=== PATIENT | female | born 1950 | race Caucasian/White ===

== ENCOUNTER 2019-03-11 19:33 | Inpatient (IN) ==
--- NOTE | 2019-03-11 20:08 | PROVIDER DOCUMENTATION ---
HPI-General Adult - General Chief Complaint: Altered Mental Status Stated Complaint: AMS Time Seen by Provider: 03/11/19 19:54 Source: patient Allergies/Adverse Reactions: Patient Allergies Allergy/AdvReac Type Severity Reaction Status Date / Time cephalexin monohydrate * Allergy HIVES Verified 03/11/19 19:45 [From Keflex] Home Medications: Home Medication List Medication Instructions Recorded Confirmed Last Taken Type Amlodipine/Atorvastatin 5 mg PO DAILY 12/02/13 12/27/16 12/29/16 History [Amlodipine-Atorvast 5-10 mg] Atorvastatin Calcium [Lipitor] 20 mg PO DAILY 12/02/13 03/11/19 12/29/16 History Levothyroxine [Synthroid] 125 mcg PO DAILY 12/02/13 03/11/19 12/29/16 History Lisinopril 20 mg PO DAILY 12/02/13 12/27/16 12/29/16 History Venlafaxine [Effexor] 75 mg PO BID 12/02/13 03/11/19 12/29/16 History Aspirin 81 mg PO DAILY 12/27/16 12/31/16 1 Week Ago History ~12/24/16 Methocarbamol [Robaxin] 500 mg PO PRN PRN 12/27/16 12/31/16 3 Days Ago History ~12/28/16 Omeprazole 40 mg PO DAILY #30 capsule. 12/31/16 Unknown Rx Allopurinol 100 mg PO DAILY 03/11/19 03/11/19 Unknown History Cyanocobalamin (Vitamin B-12) 1,000 mcg PO DAILY 03/11/19 03/11/19 Unknown History [Vitamin B12] Ergocalciferol (Vitamin D2) 50,000 unit PO Q7D 03/11/19 03/11/19 Unknown History [Vitamin D] Lisinopril/Hydrochlorothiazide 20 mg PO DAILY 03/11/19 03/11/19 Unknown History [Lisinopril-Hctz 20-12.5 mg Tab] - History of Present Illness -Gen Adult Nature of Presenting Problems: 68 yof presents with complaints of taking 75mg effexor x 3 last night and again this morning to "catch up" because she stopped taking it because "it wasnt doing anything anymore". On triage her sats noted to be 87% on room air, she was placed on 2l o2 and sats increase to 92%. she reports he breathing has been "tighter this week". she does smoke one PPD and sometimes more. She is SOB which she reports is her baseline. She has cough that is productive of clear sputum per her report. family reports she is more confused and has been hallucinating. She denies SI/HI Location of Pain/Injury: reports: none Pain Radiation: reports: no radiation Quality of Pain: reports: none Severity: reports: moderate Onset/Duration: reports: unsure Timing: reports: still present Context/Activities at Onset: reports: other (took 3 x effexor dose) Modifying Factors: improves with: nothing Associated Symptoms: reports: cough, shortness of breath Similar Symptoms Previously?: No Recently seen or treated by another doctor?: No Review of Systems - Adult - REVIEW OF SYSTEMS - ADULT Constitutional: reports: no symptoms reported. denies: see HPI, chills, fever, fatique, night sweats, weight gain, weight loss, other Eyes: reports: no symptoms reported. denies: see HPI, discharge, dry eyes, decreased vision, blurred vision, double vision, eye pain, redness, other Ears, Nose, Mouth & Throat: reports: no symptoms reported. denies: see HPI, ear discharge, ear pain, hearing loss, tinnitus, epistaxis, sinus problem, nose pain, loose teeth, mouth/dental pain, mouth swelling, hoarseness, throat pain, throat swelling, other Cardiovascular: reports: no symptoms reported. denies: see HPI, chest pain, edema, heart murmur, irregular heart rate, orthopnea, palpitations, poor circulation, PND, syncope, other Respiratory: reports: see HPI, cough, excessive sputum production, shortness of breath, wheezing. denies: no symptoms reported, chronic cough, dyspnea on exertion, hemoptysis, pleurisy, other Gastrointestinal: reports: no symptoms reported. denies: see HPI, abdominal pain, hematemesis, constipation, diarrhea, difficulty swallowing, frequent heartburn, nausea, poor appetite, rectal bleeding, vomiting, other Genitourinary: reports: no symptoms reported. denies: see HPI, dysuria, disch arge, frequency, flank pain, frequent UTI's, hematuria, hesitency, incontinence, urinary retention, urgency, other Musculoskeletal: reports: no symptoms reported. denies: see HPI, bone pain, back pain, frequent leg cramps, joint pain, joint swelling, muscle aches, muscle weakness, neck pain, other Integumentary: reports: no symptoms reported. denies: see HPI, hives, hair loss, itching, mole changes, nail changes, rash, skin sores/ulcer, skin th ickening, other Neurological: reports: no symptoms reported. denies: see HPI, ataxia, dizziness/vertigo, headache/migraines, loss of balance, numbness, paresthesia, seizure, slurred speech, syncope, tremors, other Psychiatric: reports: no symptoms reported. denies: see HPI, anxiety, anti- depressant use, alcohol/drug dependence, depression, emotional problems, insomnia, panic attacks, suicidal thoughts, other Endocrine: reports: no symptoms reported. denies: see HPI, change in skin pigment, excessive sweating, goiter, cold intolerance, heat intolerance, increased hunger, increased thirst, polyuria, other Hematologic/Lymphatic: reports: no symptoms reported. denies: see HPI, blood clots, easy bruising, low blood count, lymphedema, prolonged bleeding, swollen lymph nodes, transfusions, other Allergic/Immunologic: reports: no symptoms reported. denies: see HPI, allergic reactions, allergic rhinitis, asthma, eczema, food allergy, frequent infections, hay fever, hives, positive PPD, urticaria, other Past History - Adult - PAST MEDICAL HISTORY-ADULT Review of Records: reports: Nursing Assessment Review, Social history reviewed & non-contributory. Physical Exam-General - PHYSICAL EXAM-ADULT Initial Vital Signs Reviewed: Yes - CONSTITUTIONAL General Appearance: alert, no apparent distress - EYES Eyes: PERRL/EOMI, pink conjunctivae - HEAD, EARS, NOSE, MOUTH & THROAT HENMT: normocephalic/atraumatic, moist mucous membranes, normal ENT inspection - NECK Neck: non-tender, full range of motion, supple - RESPIRATORY Respiratory: chest non-tender, no pleuratic chest pain, no respiratory distress, no accessory muscle use, wheezing - CARDIOVASCULAR Cardiovascular: normal peripheral pulses, regular rate, rhythm, no edema, no gallop, no JVD, no murmur - GASTROINTESTINAL (ABDOMEN) Abdominal Exam: normal bowel sounds, non tender, soft - LYMPHATIC Lymphatic: no adenopathy - MUSCULOSKELETAL Back Exam: normal inspection, no CVA tenderness, no vertebral tenderness Extremity: normal range of motion, non-tender, normal gait, normal inspection Peripheral Pulses: radial (R): 2+, radial (L): 2+ - SKIN Integumentary: normal color, normal turgor, warm/dry - NEUROLOGIC Neurologic: grossly normal - PSYCHIATRIC Psych/Mental Status: normal mood/affect, oriented x 3 Progress - PLAN OF CARE/RESULTS Progress/Plan/Lab Results: Vital Signs - 8 hr 03/11/19 19:38 Temperature 98.7 F Pulse Rate 68 Respiratory Rate 18 Blood Pressure 159/83 O2 Sat by Pulse Oximetry 87 L Orders Category Date Time Status Finger Stick Blood Sugar (ED) DIRECTED Care 03/11/19 19:56 Active cxr [CHEST-2 VIEWS] [RAD] Stat Exams 03/11/19 19:56 Ordered ABG [RESP] Routine Lab 03/11/19 19:56 Ordered AMMONIA [CHEM] Stat Lab 03/11/19 19:56 Uncollected BNP [PRO B-NATRIURETIC PEPTIDE] Stat Lab 03/11/19 20:02 Uncollected CBC WITH ELECTRONIC DIFF [HEME] Stat Lab 03/11/19 19:56 Uncollected COMPREHENSIVE METABOLIC PANEL [CHEM] Stat Lab 03/11/19 19:56 Uncollected TROPONIN T Stat Lab 03/11/19 20:02 Ordered UA NIMS W/REFLEX CULT PL [URINALYSIS] Stat Lab 03/11/19 19:58 Uncollected URINE DRUG SCREEN PL Stat Lab 03/11/19 19:58 Uncollected EKG [EKG] Stat Ther 03/11/19 19:59 Ordered Result Diagrams: 03/11/19 20:02 03/11/19 20:02 - XRAY 1 XRAY Study: Chest Impression: See EMR Report (EXAM: CHEST-2 VIEWS INDICATION: hypoxia TECHNIQUE: 2 views COMPARISON: 10/02/2014 FINDINGS: There is a focal opacity in the left midlung zone that appears somewhat linear and probably represents atelectasis. The lungs appear grossly clear, otherwise. There is no discrete pleural fluid collection or pneumothorax. The cardiomediastinal silhouette and central vasculature are grossly unremarkable. IMPRESSION: Focal opacity in the left midlung zone that appears linear and probably represents atelectasis. No definite acute pathology, otherwise. Electronically signed by Fadi Murphy 03/11/2019 8:57 PM 03/11/192056 Interpreting Physician: Fadi Murphy MD Dictated Date/Time: 03/11/192054 cc: Morena Canada; Chika Hendrickson) - CT/MRI 2 CT Study: Head Impression: See EMR Report (EXAM: CT HEAD W/O CONTRAST INDICATION: AMS TECHNIQUE: This exam was performed using automated exposure control, adjustment of mA or kV according to patient size, and/or use of iterative reconstruction technique. COMPARISON: None. FINDINGS: There is patchy low attenuation in the periventricular and subcortical white matter suggesting at least moderate microangiopathy. There is a low attenuating focus at the inferior aspect of the left basal ganglion indicating a Virchow-Nick space or a tiny chronic lacunar infarct. There is no definite acute infarct given the limited sensitivity of CT versus MRI. There is no discrete intracranial mass, mass effect, or intracranial hemorrhage. The surrounding soft tissues and bony structures are essentially unremarkable. IMPRESSION: Chronic appearing changes as described. No definite acute intracranial pathology by CT. Electronically signed by Fadi Murphy 03/11/2019 8:59 PM 03/11/192058 Interpreting Physician: Fadi Murphy MD Dictated Date/Time: 03/11/192057 cc: Morena Canada; Chika Hendrickson) - CONSULTS/PCP/HOSPITALIST Notification #1 *Consult/PCP/Hospitalist*: Dr. Starks Time Discussed: 21:28 Consult Disposition: Admit Departure - Departure Date of Disposition Decision: 03/11/19 Time of Disposition Decision: 21:27 DIAGNOSIS: Hypoxemia, Shortness of breath, UTI (urinary tract infection) Disposition: ADMITTED INPATIENT 09 Certified Medical Emergency: Emergent Condition: Fair Referrals and Follow-Ups: Chika Hendrickson CRNP [Primary Care Provider] - - Critical Care Note This patient required my direct & personal management of CC.: No Attestation - Physician/ SHEFALI Attestation Patient care was provided by Advanced Practice Provider:: Yes Advanced Practice Provider:: Morena Canada Advanced Practice Provider documentation review:: The Mid-level provider documentation, treatment plan and medical decision making was reviewed by the physician who agrees with all treatment and medical decision making by the MLP. The physician spent face to face time with patient:: No Advanced Practice Provider documentation review:: Supervising physician onsite and consulted in the evaluation and care of this patient. The physician did not have a face to face encounter with the patient.
[2019-03-11] MEDS ORDERED: DUONEB (A & A) INH ONE (20:09)
[2019-03-11 20:27] LABS: BASO# 0.02 X1000 (0.0-0.2); BASO% 0.2 % (0.0-0.8); EOS# 0.18 X1000 (0.0-0.7); EOS% 1.9 % (0.0-10.0); IMM GRAN# 0.04 X1000 (0.0-0.04); IMM GRAN% 0.4 % (0.0-0.5); LYMPH# 1.43 X1000 (1.2-3.4); LYMPH% 15.5 % (20.5-51.1); MCV 106.2 FL (81-99); MONO# 1.14 X1000 (0.11-0.59); MONO% 12.3 % (1.7-9.3); MPV 8.6 FL (7.4-10.4); NEUT# 6.43 X1000 (1.4-6.5); NEUT% 69.7 % (42.2-75.2); PLT 192 X1000 (130-400); RBC 4.71 XMIL (4.2-5.4); RDW 17.3 % (11.5-14.5); WBC 9.24 X1000 (4.8-10.8)
[2019-03-11 20:36] LABS: BILIRUBIN URINE NEGATIVE (NEGATIVE); BLOOD URINE TRACE (NEGATIVE); CLARITY CLEAR (CLEAR); COLOR YELLOW; GLUCOSE URINE NEGATIVE (NEGATIVE); KETONE URINE TRACE mg/dL (NEGATIVE); LEUKOCYTES URINE 1+ (NEGATIVE); NITRITE URINE NEGATIVE (NEGATIVE); PROTEIN URINE TRACE mg/dL (NEGATIVE); SP GRAVITY URINE 1.005; UROBILINOGEN URINE 4 mg/dL
[2019-03-11 20:38] LABS: UR AMPHETAMINES QUAL NONE DETECTED (NONE DETECT); UR BARBITUATES QUAL NONE DETECTED (NONE DETECT); UR BENZODIAZEPIN QUAL NONE DETECTED (NONE DETECT); UR CANNABINOIDS QUAL NONE DETECTED (NONE DETECT); UR COCAINE QUAL NONE DETECTED (NONE DETECT); UR METHADONE QUAL NONE DETECTED (NONE DETECT); UR METHAMPHETAMINE QUAL NONE DETECTED (NONE DETECT); UR OPIATES QUAL NONE DETECTED (NONE DETECT); UR OXYCODONE QUAL NONE DETECTED (NONE DETECT); UR PCP QUAL NONE DETECTED (NONE DETECT); UR PROPOXYPHENE QUAL NONE DETECTED (NONE DETECT); UR TCA QUAL NONE DETECTED (NONE DETECT)
[2019-03-11 20:41] LABS: URINE BACTERIA 1+ /HFP; URINE EPITHELIAL CELLS >10 /HPF (<10); URINE RBC <10 /HPF (<10); URINE SOURCE CLEAN CATCH
[2019-03-11 20:48] LABS: ALBUMIN 4.1 g/dL (3.5-5.0); CALCIUM 9.3 mg/dL (8.8-10.2); CREATININE 1.3 mg/dL (0.5-0.9); POTASSIUM 4.3 mmol/L (3.5-5.1); TOTAL BILIRUBIN 0.7 mg/dL (0.20-1.00); TOTAL PROTEIN 6.4 g/dL (6.3-8.3)
--- NOTE | 2019-03-11 20:59 | Diag Imaging Result Doc PS360 ---
EXAM: CHEST-2 VIEWS INDICATION: hypoxia TECHNIQUE: 2 views COMPARISON: 10/02/2014 FINDINGS: There is a focal opacity in the left midlung zone that appears somewhat linear and probably represents atelectasis. The lungs appear grossly clear, otherwise. There is no discrete pleural fluid collection or pneumothorax. The cardiomediastinal silhouette and central vasculature are grossly unremarkable. IMPRESSION: Focal opacity in the left midlung zone that appears linear and probably represents atelectasis. No definite acute pathology, otherwise. Electronically signed by Fadi Murphy 03/11/2019 8:57 PM
--- NOTE | 2019-03-11 21:02 | Diag Imaging Result Doc PS360 ---
EXAM: CT HEAD W/O CONTRAST INDICATION: AMS TECHNIQUE: This exam was performed using automated exposure control, adjustment of mA or kV according to patient size, and/or use of iterative reconstruction technique. COMPARISON: None. FINDINGS: There is patchy low attenuation in the periventricular and subcortical white matter suggesting at least moderate microangiopathy. There is a low attenuating focus at the inferior aspect of the left basal ganglion indicating a Virchow-Nick space or a tiny chronic lacunar infarct. There is no definite acute infarct given the limited sensitivity of CT versus MRI. There is no discrete intracranial mass, mass effect, or intracranial hemorrhage. The surrounding soft tissues and bony structures are essentially unremarkable. IMPRESSION: Chronic appearing changes as described. No definite acute intracranial pathology by CT. Electronically signed by Fadi Murphy 03/11/2019 8:59 PM
[2019-03-11] MEDS ORDERED: LEVAQUIN 500 MG/D5W 500 MG/100 ML IVPB IV ONE (21:07)
[2019-03-11 21:10] LABS: CK INDEX 2.1 (0.0-2.5); CK-MB 3.71 ng/mL (0.0-5.0)
[2019-03-11] MEDS ORDERED: ZOFRAN IV PRN (21:30)
[2019-03-11] MEDS ORDERED: MORPHINE IV PRN (21:30)
[2019-03-11] MEDS ORDERED: NICODERM PATCH TD ONE (21:32)
--- NOTE | 2019-03-11 21:45 | ED EKG INTERP ---
This chart was entered by Hope Reyes Scribe, acting as scribe for Jake Crum MD. EKG Interpretation - EKG Time of EKG reading by physician:: 20:16 EKG Read and Signed by:: Jake Crum EKG Interpretation (*Must complete 3 of following elements*): Abnormal (NSR, Incomplete right bundle branch block, Nonspecific ST abnormality, Abnormal ECG) Rate: 66 Rhythm: NSR [place]: normal QRS: RBB Attestation - Physician/ SHEFALI Attestation Patient care was provided by Advanced Practice Provider:: No The physician spent face to face time with patient:: Yes Advanced Practice Provider documentation review:: Supervising physician onsite and consulted in the evaluation and care of this patient. The physician did have a face to face encounter with the patient. This chart was documented by the indicated scribe, (Hope Reyes Scribe) and accurately reflects the services I performed and decisions made by me, Jake Crum MD, as attested by the provider's signature.
[2019-03-12 05:27] LABS: BLOOD TYPE ARTERIAL; HCO3-(ACT) 32.4 mmoll (20.0-26.0); O2(CT) 19.8 mL/dL (15.0-23.0); PO2(98.6) 63 mmHg (60-100); SAMPLE BLOOD; SAO2 93.5 % (95.0-100.0); THB 16.3 g/dL (11.5-17.4); pH(98.6) 7.39 (7.35-7.45)
[2019-03-12 05:29] LABS: O2HB 86.6 % (95.0-99.0)
[2019-03-12 05:31] LABS: ALLEN TEST YES; MODALITY CANNULA; PCO2(98.6) 63 mmHg (35-45)
--- NOTE | 2019-03-12 05:44 | EKG Report ---
Test Performed on : 03/11/2019 8:16:38 PM Test Reason : CP Blood Pressure : / mmHG Vent. Rate : 066 BPM Atrial Rate : 066 BPM P-R Int : 178 ms QRS Dur : 092 ms QT Int : 406 ms P-R-T Axes : 077 -15 -09 degrees QTc Int : 425 ms Normal sinus rhythm. Incomplete right bundle branch block Nonspecific ST abnormality Abnormal ECG When compared with ECG of 25-OCT-2009 00:07, Incomplete right bundle branch block is now present Unconfirmed Result
[2019-03-12] MEDS ORDERED: ZOFRAN IV PRN (07:32)
[2019-03-12] MEDS ORDERED: DUONEB (A & A) INH PRN (07:32)
[2019-03-12] MEDS ORDERED: TYLENOL PO PRN (07:32)
[2019-03-12] MEDS: ROCEPHIN 1 GM in NS 50 ML IV SCH (08:21)
[2019-03-12] MEDS: NS 1,000 ML IV SCH ×2 (08:21→22:32)
[2019-03-12] MEDS ORDERED: SYNTHROID PO SCH (09:00)
[2019-03-12] MEDS ORDERED: PRINZIDE 20/12.5MG PO SCH (09:00)
--- NOTE | 2019-03-12 11:31 | HISTORY AND PHYSICAL ---
CHIEF COMPLAINT: Altered mental status. HISTORY OF PRESENT ILLNESS: This is a 68-year-old female who presented to the emergency room with family members who stated that the patient has been more confused than normal, been hallucinating. The patient reported stopping Effexor and then restarting it, taking three 75 mg p.o. all the night of the and then three 75 mg pills on the morning of the to try to catch up. She stated she stopped the medication on her own. On arrival to the emergency room, she was noted to have a room air O2 saturation of 87%. It did increase to 92% on 2 L nasal cannula. She denied any syncope or dizziness, any chest pain or palpitations. She was noted to have a cough with bilateral expiratory wheezes. PAST MEDICAL HISTORY: 1. Chronic obstructive pulmonary disease. 2. Hypertension. 3. Hyperlipidemia. 4. Hypothyroid. 5. Obesity. 6. Arthritis. 7. Chronic kidney disease with a baseline creatinine of 1.3. PAST SURGICAL HISTORY: 1. Left hip replacement, then revision. 2. Cholecystectomy. 3. Back surgery with multiple epidural injections for pain. FAMILY HISTORY: Both parents from an myocardial infarction, the father at 66 and mother at 72. ALLERGIES: Keflex. HOME MEDICATIONS: A list will be obtained by the nursing staff and once verified will review and restart as appropriate. REVIEW OF SYSTEMS: Discussed with patient with pertinent positives stated in the HPI. She denied any syncope or dizziness, any chest pain, palpitations, any fevers or chills, any nausea, vomiting, diarrhea, constipation, black or bloody vomitus or stools, hematuria, dysuria, frequency, urgency. VITAL SIGNS: Blood pressure is 158/61, heart rate of 73, respirations 18, temperature 98.3 degrees oral with O2 saturations 94 to 96 percent on 2 L nasal cannula. PHYSICAL EXAM: EYES: Pupils are equal, round, react to light. EOMs are intact. Sclerae are anicteric. HENT: Head is normocephalic, atraumatic. Mucous membranes are moist. NECK: Supple with trachea midline. CARDIOVASCULAR: Regular rate and rhythm. S1 and S2 appreciated. No murmurs. She has no lower extremity edema. Calves are nontender bilateral with peripheral pulses palpable x4 extremities. PULMONARY: Breath sounds with bilateral expiratory wheezes and some crackles. No increased work of breathing noted. Chest rises and falls symmetric with respiration. GASTROINTESTINAL: Abdomen is soft, nontender, nondistended with bowel sounds in all 4 quadrants. GENITOURINARY: No CVA or suprapubic tenderness. NEUROLOGIC: She is drowsy. She wakes up to verbal stimulation. She is oriented x3. SKIN: Warm and dry. ASSESSMENT AND PLAN: 1. Medication overdose. The patient denies any homicidal or suicidal ideation. She stated that she was just trying to catch up on the Effexor as she had stopped it on her on previously. We will continue to monitor. 2. Acute hypoxemic hypercarbic respiratory failure. We will continue with supplemental oxygen and monitor saturations. 3. Acute on chronic obstructive pulmonary disease exacerbation. Continue supplemental oxygen. We will give incentive spirometer q.4 hours, DuoNebs q.4 hours with q.2 hours p.r.n. Will give will give low-dose steroids to taper. 4. Hypothyroid. We will continue her home medication. 5. Chronic kidney disease. Baseline creatinine is 1.3. We will check labs daily, renal dose medications as appropriate. 6. Hypertension. We will continue her home medications once verified. Monitor vital signs and treat appropriately. 7. Obesity. 8. Hyperlipidemia. We will continue home medications. Further treatments pending hospital course. Plan was discussed with Dr. Fernandez. Dictated by DAVID Yeager for Scott Fernandez MD cc: DAVID Yeager MD
[2019-03-12] MEDS: DUONEB (A & A) INH SCH ×4 (11:32→23:37)
[2019-03-12] MEDS: SYNTHROID PO SCH ×2 (11:45)
[2019-03-12] MEDS: SOLU-MEDROL IV SCH ×2 (11:45→19:31)
[2019-03-12] MEDS: PRINIVIL PO SCH (11:45)
[2019-03-12] MEDS: HYDROCHLOROTHIAZIDE PO SCH (11:46)
[2019-03-12] MEDS: ZYLOPRIM PO SCH (11:46)
--- NOTE | 2019-03-12 12:42 | HISTORY AND PHYSICAL ---
ADDENDUM: Patient seen and examined by myself. Full note dictated and discussed with nurse practitioner. Patient presented to the hospital with her son noting that she has been confused off and on for the past several days, worsened yesterday. She did take several of her Effexor, I believe 6 pills in 2 days, because she has been off of it for a few days and she was trying to catch up. Certainly concerned that she may have a urinary infection causing metabolic encephalopathy. We are going to place her in the hospital on IV fluids. Place her on antibiotics. She appears to be having a COPD exacerbation as well. I do not want to start on steroids yet because this certainly could worsen her confusion. I expect that she also has sleep apnea, although she has not been treated. We will continue to follow. Further orders as needed. cc: Scott Fernandez MD
[2019-03-12] MEDS: LIPITOR PO SCH (20:44)
[2019-03-13] MEDS: SOLU-MEDROL IV SCH ×3 (03:46→19:11)
[2019-03-13 05:56] LABS: HEMATOCRIT 50.5 % (37.0-47.0); HEMOGLOBIN 15.4 g/dL (12.0-16.0); MCH 33.1 PG (27-31); MCHC 30.5 g/dL (33-37); MCV 108.6 FL (81-99); MPV 8.4 FL (7.4-10.4); RBC 4.65 XMIL (4.2-5.4); RDW 17.1 % (11.5-14.5); WBC 8.38 X1000 (4.8-10.8)
[2019-03-13] MEDS: SYNTHROID PO SCH ×2 (06:08)
--- NOTE | 2019-03-13 06:53 | Diag Imaging Result Doc PS360 ---
EXAM: CHEST-PORTABLE HISTORY: dyspnea TECHNIQUE: Chest single view COMPARISON: 03/11/2019 FINDINGS: Exam is taken in an extreme lordotic projection. Poor inspiratory effort. Heart is prominent. Questionable atelectasis or infiltrates in the left base. Follow-up PA and lateral recommended. Electronically signed by Nam Menchaca 03/13/2019 6:51 AM
[2019-03-13 06:56] LABS: AGAP 10; ALBUMIN 3.7 g/dL (3.5-5.0); ALKALINE PHOSPHATASE 80 U/L (32-104); BUN 21 mg/dL (8-22); CALCIUM 9.2 mg/dL (8.8-10.2); CHLORIDE 96 mmol/L (98-107); COSMO 283; CREATININE 1.1 mg/dL (0.5-0.9); ESTIMATED GFR 50; GLUCOSE 169 mg/dL (70-104); GOT 13 U/L (10-30); GPT < 5 U/L (10-36); MAGNESIUM 1.9 mg/dL (1.5-2.7); POTASSIUM 4.6 mmol/L (3.5-5.1); SODIUM 138 mmol/L (136-145); TCO2 32 mmol/L (25-35); TOTAL PROTEIN 6.7 g/dL (6.3-8.3)
[2019-03-13] MEDS: DUONEB (A & A) INH SCH ×5 (07:03→23:36)
[2019-03-13] MEDS: ZYLOPRIM PO SCH (08:08)
[2019-03-13] MEDS: HYDROCHLOROTHIAZIDE PO SCH (08:08)
[2019-03-13] MEDS: ROCEPHIN 1 GM in NS 50 ML IV SCH (08:08)
[2019-03-13] MEDS: PRINIVIL PO SCH (08:08)
[2019-03-13] MEDS ORDERED: CARDIZEM ONE (09:04)
--- NOTE | 2019-03-13 10:07 | PROGRESS NOTE ---
DATE: 03/13/2019 SUBJECTIVE: Patient feels better this morning and denies having any new complaints. She still has some wheezing. OBJECTIVE: Vital Signs: Temperature 98.2 degrees, pulse 76 per minute, respiratory rate is 16 per minute, blood pressure 131/72, pulse ox 89 percent on 4 L of oxygen via nasal cannula. General: Patient is alert and oriented x3. She does not appear to be in any acute distress. Cardiovascular System: First and second heart sounds are audible without any murmurs or gallops. Respiratory System: Bilateral lung air entry is moderately decreased with a few wheezes present on expiration. Gastrointestinal System: Patient is morbidly obese. Abdomen is soft and nontender. Normal bowel sounds are present. Musculoskeletal System: No deformities are present. DIAGNOSTIC DATA: CBC is nondiagnostic and comprehensive metabolic panel showed glucose levels of 169. Rest of the CMP was nondiagnostic. Arterial blood gases done on 03/11/2019 showed pH of 7.39, pCO2 63, and PO2 63. This ABG was drawn on 28% of oxygen. IMPRESSION: 1. Effexor overdose. 2. Acute hypoxemic respiratory failure secondary to acute chronic obstructive pulmonary disease exacerbation. 3. Hypertension. 4. Hypothyroidism. PLAN: The patient took extra Effexor, overdosed, but denies having any suicidal ideation. She just wanted to feel better and now understands that she does not have to do that in the future. She does have wheezing bilaterally, and therefore we are going to continue with IV Solu-Medrol along with bronchodilators. Her blood pressure has been stable and she will continue with levothyroxine for her hypothyroidism. I think she might be able to be discharged home within the next 1 to 2 days. cc: Shagufta Mcdonough MD
[2019-03-13] MEDS: NS 1,000 ML IV SCH (16:33)
[2019-03-13] MEDS: LIPITOR PO SCH (20:05)
[2019-03-14] MEDS: SOLU-MEDROL IV SCH ×3 (03:13→20:20)
[2019-03-14 06:00] LABS: BE 10.6 mmoll (-3.0-3.0); BLOOD TYPE ARTERIAL; HCO3-(ACT) 32.8 mmoll (20.0-26.0); METHB 1.4 % (0.0-1.5); O2(CT) 19.5 mL/dL (15.0-23.0); PO2(98.6) 52 mmHg (60-100); SAMPLE BLOOD; SAO2 90.6 % (95.0-100.0); pH(98.6) 7.33 (7.35-7.45)
[2019-03-14 06:02] LABS: ALLEN TEST NO; MODALITY CANNULA; O2HB 86.8 % (95.0-99.0); PCO2(98.6) 77 mmHg (35-45)
[2019-03-14] MEDS: SYNTHROID PO SCH ×2 (06:11)
[2019-03-14] MEDS: DUONEB (A & A) INH SCH ×5 (07:46→23:27)
--- NOTE | 2019-03-14 08:16 | Diag Imaging Result Doc PS360 ---
EXAM: CHEST-PORTABLE - 03/14/2019 HISTORY: Respiratory Failure TECHNIQUE: Portable chest COMPARISON: 03/13/2019 FINDINGS: The projection is somewhat lordotic similar to prior. There is limitation of detail of the left base. The remainder the lungs appear essentially clear. There is no pneumothorax identified. IMPRESSION: Limitation of detail at left base. Possibility of infiltrate or pleural fluid at the left base cannot be excluded. Electronically signed by Darrius Mattson 03/14/2019 8:13 AM
[2019-03-14 08:50] LABS: BASO# 0.01 X1000 (0.0-0.2); BASO% 0.1 % (0.0-0.8); EOS# 0.01 X1000 (0.0-0.7); EOS% 0.1 % (0.0-10.0); HEMATOCRIT 51.7 % (37.0-47.0); HEMOGLOBIN 15.9 g/dL (12.0-16.0); IMM GRAN# 0.06 X1000 (0.0-0.04); IMM GRAN% 0.5 % (0.0-0.5); LYMPH% 10.5 % (20.5-51.1); MCH 33.5 PG (27-31); MCHC 30.8 g/dL (33-37); MCV 108.8 FL (81-99); MONO# 1.49 X1000 (0.11-0.59); MONO% 12.1 % (1.7-9.3); MPV 8.7 FL (7.4-10.4); NEUT# 9.49 X1000 (1.4-6.5); NEUT% 76.7 % (42.2-75.2); PLT 188 X1000 (130-400); RBC 4.75 XMIL (4.2-5.4); RDW 17.3 % (11.5-14.5); WBC 12.36 X1000 (4.8-10.8)
[2019-03-14] MEDS ORDERED: VITAMIN D PO SCH (09:00)
[2019-03-14] MEDS: HYDROCHLOROTHIAZIDE PO SCH (09:30)
[2019-03-14] MEDS: ZYLOPRIM PO SCH (09:30)
[2019-03-14] MEDS: PRINIVIL PO SCH (09:30)
--- NOTE | 2019-03-14 10:00 | PROGRESS NOTE ---
DATE: 03/14/2019 SUBJECTIVE: Patient denies having any acute complaints this morning and feels well. OBJECTIVE: Vital Signs: Temperature 98.0 degrees, pulse 68 per minute, respiratory rate 14 per minute, blood pressure 162/75, pulse ox 92 percent on 4 L of oxygen via nasal cannula. General: Patient is alert and oriented x3. She does not appear to be in any acute distress. Cardiovascular System: First and second heart sounds are audible without murmurs or gallops. Respiratory System: Bilateral lung air entry is moderately decreased but there are no rales or rhonchi present on auscultation. Gastrointestinal System: Patient is morbidly obese. Abdomen is soft and nontender. Normal bowel sounds are present. Musculoskeletal System: No deformities are present. DIAGNOSTIC DATA: CBC shows WBC count of 12.36, hemoglobin 15.9, hematocrit 51.7, and platelet count 188,000. Comprehensive metabolic panel is ordered but pending at the time of this dictation. Arterial blood gases done this morning showed pH of 7.33, pCO2 77, and PO2 52 on 36% of oxygen. Oxyhemoglobin was noted to be 86.8%. Chest x-ray obtained this morning showed limitation of detail at left base. The possibility of infiltrate or pleural fluid at the base cannot be excluded. IMPRESSION: 1. Acute hypoxemic respiratory failure with acute chronic obstructive pulmonary disease exacerbation. 2. Hypertension. 3. Hypothyroidism. PLAN: The patient has been getting IV methylprednisolone along with ceftriaxone. I will continue with methylprednisolone but discontinue ceftriaxone, and switch her to Zosyn IV to cover the anaerobes since she is at risk of aspiration. She was originally admitted to the hospital because of Effexor overdose. I am going to obtain CT angiogram of the pulmonary arteries to further evaluate her hypoxemia since she has a large body habitus and is at risk of having venous thromboembolism. We are going to continue giving her bronchodilators along with routine medications for blood pressure control, dyslipidemia and levothyroxine. Further recommendations will be given as per outcome of these measures. cc: Shagufta Mcdonough MD [facility]
[2019-03-14 10:01] LABS: AGAP 9; ALBUMIN 3.8 g/dL (3.5-5.0); ALKALINE PHOSPHATASE 74 U/L (32-104); BUN 27 mg/dL (8-22); CALCIUM 9.6 mg/dL (8.8-10.2); CHLORIDE 95 mmol/L (98-107); COSMO 284; CREATININE 1.2 mg/dL (0.5-0.9); ESTIMATED GFR 45; GLUCOSE 88 mg/dL (70-104); GOT 15 U/L (10-30); GPT < 5 U/L (10-36); POTASSIUM 4.4 mmol/L (3.5-5.1); SODIUM 140 mmol/L (136-145); TCO2 36 mmol/L (25-35); TOTAL PROTEIN 6.7 g/dL (6.3-8.3)
[2019-03-14] MEDS: NS 1,000 ML IV SCH (10:31)
[2019-03-14] MEDS: ZOSYN 3.375 GM in NS 50 ML IV SCH ×4 (10:31→21:00)
[2019-03-14 11:15] LABS: ANISOCYTOSIS 1+; LYMPHS 9 % (21-51); MONO 12 % (1-9); SEGS 79 % (42-75)
[2019-03-14] MEDS ORDERED: LOVENOX SUBQ SCH (16:00)
--- NOTE | 2019-03-14 17:40 | Diag Imaging Result Doc PS360 ---
EXAM: CT ANGIOGRAM PULMONARY ARTERIES - 03/14/2019 HISTORY: Hypoxemia; Dyspnia TECHNIQUE: CT angiogram pulmonary arteries with intravenous contrast. Axial, 2-D coronal MIP, and 3-D MIP images are obtained. COMPARISON: None. FINDINGS: There are artifacts from the patient's body habitus which limit detail. The pulmonary arteries of the left upper lobe are relatively small. There are possibly chronic emboli at the left lower lobe. There are no discrete acute pulmonary emboli identified. There is no indication of aortic dissection. There are some subsegmental atelectasis and/or scarring at the bilateral lower lobes and at the posterior left upper lobe. There is no pleural effusion or pneumothorax identified. IMPRESSION: No discrete evidence of acute pulmonary emboli. Subsegmental atelectasis and/or scarring at bilateral lower lobes and posterior left upper lobe. No discrete pneumonia. Electronically signed by Darrius Mattson 03/14/2019 5:37 PM
[2019-03-14] MEDS: ELIQUIS PO SCH (20:22)
[2019-03-14] MEDS: LIPITOR PO SCH (20:24)
[2019-03-15] MEDS: NS 1,000 ML IV SCH (00:40)
[2019-03-15] MEDS: SOLU-MEDROL IV SCH ×3 (04:15→19:45)
[2019-03-15] MEDS: ZOSYN 3.375 GM in NS 50 ML IV SCH ×4 (04:20→21:33)
[2019-03-15 05:48] LABS: BE 9.5 mmoll (-3.0-3.0); BLOOD TYPE ARTERIAL; HCO3-(ACT) 31.9 mmoll (20.0-26.0); METHB 1.3 % (0.0-1.5); O2(CT) 20.4 mL/dL (15.0-23.0); SAMPLE BLOOD; SAO2 88.8 % (95.0-100.0); THB 17.1 g/dL (11.5-17.4); pH(98.6) 7.33 (7.35-7.45)
[2019-03-15 05:51] LABS: PCO2(98.6) 75 mmHg (35-45)
[2019-03-15 05:53] LABS: ALLEN TEST NO; MODALITY CANNULA; O2HB 85.2 % (95.0-99.0); PO2(98.6) 49 mmHg (60-100)
[2019-03-15] MEDS: SYNTHROID PO SCH ×2 (06:00)
[2019-03-15 06:36] LABS: HEMATOCRIT 51.5 % (37.0-47.0); HEMOGLOBIN 16.1 g/dL (12.0-16.0); IMM GRAN# 0.08 X1000 (0.0-0.04); IMM GRAN% 0.8 % (0.0-0.5); LYMPH# 0.46 X1000 (1.2-3.4); LYMPH% 4.7 % (20.5-51.1); MCH 33.8 PG (27-31); MCHC 31.3 g/dL (33-37); MONO# 0.27 X1000 (0.11-0.59); MONO% 2.8 % (1.7-9.3); MPV 9.2 FL (7.4-10.4); NEUT# 8.94 X1000 (1.4-6.5); NEUT% 91.7 % (42.2-75.2); PLT 166 X1000 (130-400); RBC 4.77 XMIL (4.2-5.4); WBC 9.75 X1000 (4.8-10.8)
[2019-03-15 06:52] LABS: AGAP 11; ALBUMIN 3.8 g/dL (3.5-5.0); ALKALINE PHOSPHATASE 72 U/L (32-104); BUN 27 mg/dL (8-22); CALCIUM 9.5 mg/dL (8.8-10.2); CHLORIDE 95 mmol/L (98-107); COSMO 289; CREATININE 1.2 mg/dL (0.5-0.9); ESTIMATED GFR 45; GLUCOSE 142 mg/dL (70-104); GOT 11 U/L (10-30); GPT < 5 U/L (10-36); SODIUM 141 mmol/L (136-145); TCO2 35 mmol/L (25-35); TOTAL PROTEIN 6.6 g/dL (6.3-8.3)
[2019-03-15] MEDS: DUONEB (A & A) INH SCH ×4 (08:37→19:26)
[2019-03-15 09:19] LABS: ANISOCYTOSIS 1+; LYMPHS 7 % (21-51); MONO 3 % (1-9); SEGS 90 % (42-75)
[2019-03-15] MEDS: ZYLOPRIM PO SCH (10:10)
[2019-03-15] MEDS: PRINIVIL PO SCH (10:11)
[2019-03-15] MEDS: ELIQUIS PO SCH ×2 (10:11→21:33)
[2019-03-15] MEDS: HYDROCHLOROTHIAZIDE PO SCH (10:11)
--- NOTE | 2019-03-15 20:37 | PROGRESS NOTE ---
DATE: 03/15/2019 SUBJECTIVE: Patient notes that overall she is feeling okay, still weak and tired, really has not been able to get out of bed on her own. Still short of breath and wheezing. Denies any fevers. PHYSICAL EXAMINATION: Vital Signs: Temperature 98 degrees, pulse 79, respiratory rate 18, BP 157/57. General: Patient is obese female who is in mild respiratory distress, but actually improved from admission. HEENT: Normocephalic. Neck: Supple. Cardiovascular: Regular rate. No murmurs. Chest: Decreased breath sounds, but equal bilaterally. Better air movement. Positive wheezing, which also has improved. Abdomen: Soft, obese, nondistended. Extremities: Moves all extremities. Neurologic: No changes. ASSESSMENT: 1. Chronic obstructive pulmonary disease with exacerbation. 2. Obesity. 3. Hypertension. 4. Hypothyroidism. PLAN: We are going to saline lock, decrease her Solu-Medrol from 60 to 40 intravenously every 8 hours, continue to follow. Hopefully, she can discharge home over the next day or two if her symptoms continue to improve. cc: Scott Fernandez MD
[2019-03-15] MEDS: LIPITOR PO SCH (21:33)
[2019-03-16] MEDS: ZOSYN 3.375 GM in NS 50 ML IV SCH ×2 (03:42→10:43)
[2019-03-16] MEDS: SOLU-MEDROL IV SCH ×2 (03:42→12:16)
[2019-03-16] MEDS: DUONEB (A & A) INH SCH ×4 (03:52→15:10)
[2019-03-16] MEDS: SYNTHROID PO SCH ×2 (06:13)
[2019-03-16] MEDS: HYDROCHLOROTHIAZIDE PO SCH (09:44)
[2019-03-16] MEDS: ELIQUIS PO SCH (09:44)
[2019-03-16] MEDS: ZYLOPRIM PO SCH (09:45)
[2019-03-16] MEDS: PRINIVIL PO SCH (09:45)
[2019-03-16 13:05] LABS: BASO# 0.01 X1000 (0.0-0.2); BASO% 0.1 % (0.0-0.8); HEMATOCRIT 50.1 % (37.0-47.0); HEMOGLOBIN 16.3 g/dL (12.0-16.0); IMM GRAN# 0.05 X1000 (0.0-0.04); IMM GRAN% 0.4 % (0.0-0.5); LYMPH# 0.76 X1000 (1.2-3.4); LYMPH% 6.5 % (20.5-51.1); MCH 34.2 PG (27-31); MCHC 32.5 g/dL (33-37); MONO# 1.13 X1000 (0.11-0.59); MONO% 9.7 % (1.7-9.3); MPV 8.8 FL (7.4-10.4); NEUT# 9.74 X1000 (1.4-6.5); NEUT% 83.3 % (42.2-75.2); PLT 168 X1000 (130-400); RBC 4.77 XMIL (4.2-5.4); RDW 16.7 % (11.5-14.5); WBC 11.69 X1000 (4.8-10.8)
[2019-03-16 13:13] LABS: BE 13.7 mmoll (-3.0-3.0); BLOOD TYPE ARTERIAL; HCO3-(ACT) 35.2 mmoll (20.0-26.0); METHB 1.2 % (0.0-1.5); O2(CT) 20.3 mL/dL (15.0-23.0); O2HB 84.9 % (95.0-99.0); SAMPLE BLOOD; SAO2 88.3 % (95.0-100.0); THB 17.1 g/dL (11.5-17.4); pH(98.6) 7.48 (7.35-7.45)
[2019-03-16 13:16] LABS: CALCIUM 9.8 mg/dL (8.8-10.2); CREATININE 1.1 mg/dL (0.5-0.9); POTASSIUM 4.5 mmol/L (3.5-5.1)
[2019-03-16 13:36] LABS: ALLEN TEST YES; MODALITY CANNULA
[2019-03-16 13:37] LABS: PCO2(98.6) 54 mmHg (35-45)
[2019-03-16 13:38] LABS: PO2(98.6) 48 mmHg (60-100)
[2019-03-16 15:29] VITALS: BP 169/91
--- NOTE | 2019-03-16 22:01 | DISCHARGE SUMMARY ---
ADMISSION DATE: 03/11/2019 DISCHARGE DATE: 03/16/2019 CONTINUATION REPORT DISCHARGE DIET: Heart healthy diet. DISCHARGE ACTIVITY: As tolerated. DISCHARGE MEDICATIONS: 1. Allopurinol 100 mg p.o. daily. 2. Effexor 75 mg p.o. twice daily. 3. Lipitor 20 mg p.o. daily. 4. Lisinopril hydrochlorothiazide 20/12.5 mg p.o. tab daily. 5. Synthroid 125 mcg p.o. daily. 6. Vitamin B12 1000 mcg p.o. daily. 7. Vitamin D2 74983 units p.o. daily. 8. Levaquin 750 mg p.o. daily for 7 days. 9. Medrol Dosepak. PHYSICIAN FOLLOWUP: Chika Hendrickson in the next 2 weeks. DISCHARGE INSTRUCTIONS: If her condition changes, contact physician and/or return to the emergency department. Changes may include, but are not limited to shortness of breath, increased fatigue, excessive bleeding, unexplained weight loss or gain, unmanageable pain, signs or symptoms of infection. DISCHARGE DISPOSITION: Home. Dictated by DAVID Parkinson for Tobi Sweet MD cc: DAVID Parkinson MD
--- NOTE | 2019-03-16 22:01 | DISCHARGE SUMMARY ---
ADMISSION DATE: 03/11/2019 DISCHARGE DATE: 03/16/2019 ADMISSION DIAGNOSES: 1. Medication overdose with a denial of homicidal, suicidal, ADA ideation. Apparently, the patient was just trying to catch up on her Effexor. They had stopped it. 2. Acute hypoxemic hypercarbic respiratory failure. 3. Acute on chronic obstructive pulmonary disease exacerbation. 4. Hypothyroidism. 5. Chronic kidney disease stage 3. 6. Hypertension. 7. Obesity with a BMI of 44.7. 8. Hyperlipidemia. DISCHARGE DIAGNOSES: 1. Chronic obstructive pulmonary disease exacerbation. 2. Obesity with a BMI of 44.7. 3. Hypertension. 4. Hypothyroidism. CONSULTATIONS: Case management, social service. SURGERIES/PROCEDURES: None. HOSPITAL COURSE: On 03/11/2019, Ms. Kaila Miller, a 68-year-old female presented to the emergency department with family members who stated that the patient had been more confused than usual, and apparently had been hallucinating. The patient reported stopping Effexor and then restarting it, taking three 75 mg p.o. tablets all in the night of the and then 3 more 75 mg pills on the morning of the trying to catch up. Apparently, she tried to stop this medication on her own before trying to catch back up on it. On arrival to the emergency department, she was noted to have O2 saturation of 87%and 2 L of oxygen brought back up to 92%. She had no other complaints other than she did have a cough with some bilateral expiratory wheezes. She was treated for respiratory failure with oxygen, DuoNeb, incentive spirometer, low- dose steroids, and Zosyn. She was continued on her home medications for her hypothyroidism, hypertension and hyperlipidemia. Her kidney disease remains stable with a creatinine anywhere from 1.1 to 1.2. There was a chest x-ray on the questioned atelectasis or infiltrate in the left base and recommended another x-ray, but PA and lateral view. For the Effexor overdose she was just monitored closely. There were no other side effects other than the confusion that she had but that also improved. She had a pulmonary arteriogram on the . There was no acute pulmonary emboli. It did show possibly chronic emboli in the left lower lobe, but nothing acute and she is already on Eliquis 5 mg twice a day. At some point, she was on ceftriaxone, but she was discontinued on that and started on Zosyn and that was approximately on the 14 of March. Steroids were titrated down and she is stable enough for discharge home. DISCHARGE VITAL SIGNS: Temperature 97.8 degrees, heart rate 54, respiratory rate 20, blood pressure 167/80, O2 saturation 92% on 3 L nasal cannula. DISCHARGE LAB DATA: White blood cells 11,000. Hemoglobin 16, hematocrit 50, platelet count 168,000. Sodium 139, potassium 4.5, BUN 31, creatinine is 1.1, glucose 190, calcium 9.8. She had ABGs today, pH 7.48, pCO2 54, PO2 48, bicarbonate 35, base excess 13, saturation 84.9%, carboxyhemoglobin is 2.6, lactate is 2.3. IMAGING: Chest x-ray on admission focal pathogen in the left lung mid lung zone that appears linear, probably represent atelectasis, nothing acute. 03/11/2019, head CT, chronic changes, nothing acute. 03/13/2019, chest x-ray, questionable atelectasis infiltrates in the left lung base. 03/14/2019, chest x-ray, possibility of infiltrate or pleural fluid at the left lung base that could not be excluded, and 03/14/2019, pulmonary arteriogram no discrete evidence of acute pulmonary emboli but it did show possibly chronic emboli in the left lower lobe. EKG on the was normal sinus rhythm, rate 66, QTc is 425. DISCHARGE DIET: Heart healthy. DISCHARGE ACTIVITY: As tolerated. Dictated by DAVID Parkinson for Tobi Sweet MD Addendum: Patient seen and examined by myself. Agree with DAVID note. It reflects my assessment and plan. Patient is being discharged in stable condition. Will be seen by his PCP in a week. cc: DAVID Parkinson MD [facility]
== END 2019-03-16 15:50 | disposition home or self-care (01) | DRG 917 ==
LOC: P.ED 19:33 → SUATTDRO 22:08 → P.MEDSURG 22:08
PROVIDERS: ATTEND Internal Medicine

== ENCOUNTER 2019-06-15 06:30 | Inpatient (IN) ==
--- NOTE | 2019-06-09 17:36 | EKG Report ---
Test Performed on : 06/09/2019 5:30:30 PM Test Reason : PAT Blood Pressure : / mmHG Vent. Rate : 078 BPM Atrial Rate : 078 BPM P-R Int : 168 ms QRS Dur : 146 ms QT Int : 404 ms P-R-T Axes : 054 -10 031 degrees QTc Int : 460 ms Normal sinus rhythm. Right bundle branch block Abnormal ECG When compared with ECG of 11-MAR-2019 20:16, Right bundle branch block has replaced Incomplete right bundle branch block Confirmed by Francisco CARRERA, Jose Eduardo Cruz ([id number]) on 06/10/2019 12:23:48 PM
[2019-06-09 17:51] LABS: URINE SOURCE CLEAN CATCH
[2019-06-09 17:54] LABS: BASO# 0.14 X1000 (0.0-0.2); BASO% 1.5 % (0.0-0.8); EOS# 0.03 X1000 (0.0-0.7); EOS% 0.3 % (0.0-10.0); HEMATOCRIT 47.1 % (37.0-47.0); HEMOGLOBIN 15.3 g/dL (12.0-16.0); IMM GRAN# 0.04 X1000 (0.0-0.04); IMM GRAN% 0.4 % (0.0-0.5); LYMPH% 22.5 % (20.5-51.1); MCH 33.1 PG (27-31); MCHC 32.5 g/dL (33-37); MCV 101.9 FL (81-99); MONO# 1.03 X1000 (0.11-0.59); MPV 9.1 FL (7.4-10.4); NEUT# 6.01 X1000 (1.4-6.5); NEUT% 64.3 % (42.2-75.2); PLT 177 X1000 (130-400); RBC 4.62 XMIL (4.2-5.4); RDW 14.9 % (11.5-14.5); WBC 9.35 X1000 (4.8-10.8)
[2019-06-09 17:58] LABS: BILIRUBIN URINE NEGATIVE (NEGATIVE); BLOOD URINE NEGATIVE (NEGATIVE); COLOR YELLOW; GLUCOSE URINE NEGATIVE (NEGATIVE); KETONE URINE NEGATIVE (NEGATIVE); LEUKOCYTES URINE SMALL (NEGATIVE); NITRITE URINE NEGATIVE (NEGATIVE); PROTEIN URINE NEGATIVE (NEGATIVE); SP GRAVITY URINE 1.018; TURBIDITY URINE HAZY (CLEAR); UROBILINOGEN URINE NORMAL (NORMAL)
[2019-06-09 17:59] LABS: UR EPITHELIAL CELLS >10 /HPF (<10); URINE BACTERIA 2+ /HPF; URINE RBC <10 /HPF (<10); URINE WBC 20-40 /HPF (<10)
[2019-06-09 18:00] LABS: INR 0.83; PROTIME 11.4 Seconds (11.0-16.0)
[2019-06-09 18:13] LABS: HEMOGLOBIN A1C 6.1 % (4.8-6.0)
[2019-06-09 18:15] LABS: ALBUMIN 3.8 g/dL (3.5-5.0); CALCIUM 9.4 mg/dL (8.8-10.2); CREATININE 1.5 mg/dL (0.5-0.9); POTASSIUM 4.1 mmol/L (3.5-5.1)
[2019-06-15] MEDS ORDERED: COLACE ONE (07:00)
[2019-06-15] MEDS ORDERED: REGLAN ONE (07:01)
[2019-06-15] MEDS ORDERED: PEPCID ONE (07:01)
[2019-06-15] MEDS ORDERED: VANCOMYCIN 1 GM/NS 1 GM/250 ML IVPB ONE (07:01)
[2019-06-15] MEDS ORDERED: LYRICA ONE (07:01)
[2019-06-15] MEDS ORDERED: CELEBREX ONE (07:01)
[2019-06-15] MEDS ORDERED: LR 1,000 ML ONE (07:01)
[2019-06-15] MEDS ORDERED: ROBINUL ONE (07:53)
[2019-06-15] MEDS ORDERED: DIPRIVAN 1% ONE ×2 (07:53→09:10)
[2019-06-15] MEDS ORDERED: FENTANYL ONE ×2 (07:53→08:47)
[2019-06-15] MEDS ORDERED: QUELICIN (DOSE) ONE (07:53)
[2019-06-15] MEDS ORDERED: TORADOL ONE (08:03)
[2019-06-15] MEDS ORDERED: DURAMORPH ONE (08:03)
[2019-06-15] MEDS ORDERED: MARCAINE 0.25% PF ONE (08:03)
[2019-06-15] MEDS ORDERED: VANCOMYCIN ONE (08:04)
[2019-06-15] MEDS ORDERED: SODIUM CHLORIDE 0.9% ONE (08:04)
[2019-06-15] MEDS ORDERED: NEOSPORIN G.U. IRRIGANT ONE (08:05)
[2019-06-15] MEDS ORDERED: EXPAREL 1.3% ONE (08:05)
[2019-06-15] MEDS: CYKLOKAPRON 1,000 MG/NS 2,000 MG/200 ML IVPB ONE ×2 (09:05→10:10)
[2019-06-15] MEDS ORDERED: ZOFRAN ONE (09:20)
[2019-06-15] MEDS ORDERED: OFIRMEV 1000 MG/ISOTONIC SOLN 1,000 MG/100 ML BOTTLE ONE (09:20)
[2019-06-15] MEDS ORDERED: DECADRON ONE (09:20)
[2019-06-15 09:51] LABS: URINE SOURCE CATH
[2019-06-15 09:56] LABS: BILIRUBIN URINE NEGATIVE (NEGATIVE); BLOOD URINE NEGATIVE (NEGATIVE); COLOR YELLOW; GLUCOSE URINE NEGATIVE (NEGATIVE); KETONE URINE NEGATIVE (NEGATIVE); LEUKOCYTES URINE NEGATIVE (NEGATIVE); NITRITE URINE NEGATIVE (NEGATIVE); PH URINE 5.5; PROTEIN URINE NEGATIVE (NEGATIVE); SP GRAVITY URINE 1.022; TURBIDITY URINE CLEAR (CLEAR); UROBILINOGEN URINE NORMAL (NORMAL)
[2019-06-15 09:58] LABS: UR EPITHELIAL CELLS <10 /HPF (<10); URINE BACTERIA NEGATIVE /HPF; URINE RBC <10 /HPF (<10); URINE WBC <10 /HPF (<10)
[2019-06-15] MEDS ORDERED: NS 1,000 ML ONE (11:14)
[2019-06-15] MEDS ORDERED: OXY IR ONE (11:14)
--- NOTE | 2019-06-15 11:56 | Diag Imaging Result Doc PS360 ---
KNEE 1-2 VIEWS-RIGHT - 06/15/2019 INDICATION: post op total knee TECHNIQUE: Two views COMPARISON: None FINDINGS: There has been right total knee arthroplasty. Alignment is anatomic. No hardware fracture or loosening. IMPRESSION: No complication. Electronically signed by Antonio He 06/15/2019 11:54 AM
[2019-06-15] MEDS ORDERED: ZOFRAN IV PRN (12:45)
[2019-06-15] MEDS: NS 1,000 ML IV SCH (12:45)
[2019-06-15] MEDS ORDERED: MORPHINE IV PRN ×3 (12:45)
[2019-06-15] MEDS ORDERED: ZOFRAN ODT PO PRN (12:45)
[2019-06-15] MEDS ORDERED: OXY IR PO PRN ×2 (12:45)
--- NOTE | 2019-06-15 14:08 | OPERATIVE NOTE ---
PROCEDURE DATE: 06/15/2019 PREOPERATIVE DIAGNOSIS: Degenerative joint disease, right knee. POSTOPERATIVE DIAGNOSIS: Degenerative joint disease right knee. PROCEDURE PERFORMED: Right total knee replacement. SURGEON: Maddie Thao MD. PUBLIC SERVICE OFFICER: RADHA Trejo. Mr. Beckett was necessary for proper retraction and manipulation of the leg during the case. ANESTHESIA: Spinal. COMPLICATIONS: None. PROCEDURE IN DETAIL: This 68-year-old female presents for a right total knee replacement. Risks, benefits, and no guarantees were discussed, and she is willing to proceed. She was taken to the operating room and satisfactory anesthesia obtained. The right leg was prepped and draped in usual sterile fashion. A time-out was taken to confirm operative site, procedure, and patient. Afterwards, the leg was wrapped with an Esmarch. Tourniquet inflated to 350 mmHg. A midline incision was made over the front of the knee followed by a quad tendon sparing arthrotomy. The patella was everted and with freehand technique the undersurface of the patella was removed. The patella was sized to a 35 medialized dome patella. The drill paddle was used to prepare for the patellar implant lug holes. With the patella subluxed laterally, the knee was flexed. An intramedullary hole made in the distal femur. The distal femoral cutting block was secured in 5 degrees of valgus, and the distal femoral resection made. Distal femur was sized to a DePuy Attune size 7 implant. The finishing block was secured, and the anterior, posterior, and chamfer cuts sequentially made. The notch was created for posterior stabilized design. Any remaining osteophytes debrided off the femur. The knee was flexed, and a PCL retractor placed behind the tibia to protect the neurovascular bundle. The tibial cutting block was secured, and the tibial resection made with care taken to preserve collateral ligaments. The tibia was sized to a size 7 tibial tray. Trial reduction was performed with size 7 implants, and a 7 mm spacer with good stability. The trial implants were removed. The bony surfaces thoroughly irrigated with pulsatile lavage. Cement with a gram of vancomycin was utilized to cement a DePuy Attune rotating platform size 7 tibial tray, a right posterior stabilized standard width, size 7 femoral component, and a 35 medialized dome patella. While the cement cured, the joint capsule was injected with Exparel for pain management, and Hemovac drain placed. After curing the cement, any excess cement was removed with an osteotome. A 7 mm posterior stabilized polyethylene bearing was placed into the knee, and the knee reduced. Final range of motion was 0 to 120 degrees with midline patellar tracking and good soft tissue balance. The wound was copiously irrigated with irrigant, and closed over the drain with #1 Vicryl in the arthrotomy, 2-0 Vicryl in the subcutaneous, and skin orion on the skin edges. Sterile dressings completed the closure, and the patient was recovered from anesthesia, and transferred to the recovery room in stable condition. No intraoperative complications were noted. Instrument count and sponge count was correct at the time of closure. cc: Fadi Thao MD
[2019-06-15] MEDS ORDERED: PATIENT'S OWN MED PO SCH (16:00)
[2019-06-15] MEDS: TYLENOL PO SCH ×2 (16:40→20:55)
[2019-06-15] MEDS: ULTRAM PO SCH ×2 (16:40→20:55)
--- NOTE | 2019-06-15 18:27 | ORTHOPAEDICS PROGRESS NOTE ---
DATE: 06/15/2019 SUBJECTIVE: Ms. Miller is seen status post total knee replacement. OBJECTIVE: Vital signs: She is afebrile with stable vital signs. General: She is awake and alert and getting ready to mobilized with therapy. Extremities: Her bandage is clean and dry. There are no signs of motor or sensory deficits. She is comfortable at present. PLAN: We will plan on mobilizing her currently. She can be discharged home when she is mobilizing independently. Transfer to rehab center when a bed is available. cc: Fadi Thao MD
[2019-06-15] MEDS ORDERED: VANCOMYCIN 1 GM/NS 1 GM/250 ML IVPB IV ONE (20:30)
[2019-06-15] MEDS: CELEBREX PO SCH (20:54)
[2019-06-15] MEDS: COLACE PO SCH (20:55)
[2019-06-16] MEDS: ULTRAM PO SCH ×4 (03:33→20:39)
[2019-06-16] MEDS: TYLENOL PO SCH ×4 (03:33→20:39)
[2019-06-16] MEDS: NS 1,000 ML IV SCH ×2 (03:34→15:35)
[2019-06-16] MEDS: SYNTHROID PO SCH (06:43)
[2019-06-16] MEDS ORDERED: SYNTHROID PO SCH (07:00)
[2019-06-16 07:04] LABS: HEMATOCRIT 35.8 % (37.0-47.0); HEMOGLOBIN 11.8 g/dL (12.0-16.0)
[2019-06-16 07:43] LABS: CALCIUM 8.9 mg/dL (8.8-10.2); CREATININE 1.5 mg/dL (0.5-0.9); POTASSIUM 4.6 mmol/L (3.5-5.1)
[2019-06-16] MEDS: ZYLOPRIM PO SCH (09:16)
[2019-06-16] MEDS: ASPIRIN PO SCH (09:16)
[2019-06-16] MEDS: PEPCID PO SCH (09:17)
[2019-06-16] MEDS: WELLBUTRIN XL PO SCH (09:17)
[2019-06-16] MEDS: CELEBREX PO SCH ×2 (09:17→20:39)
[2019-06-16] MEDS: COLACE PO SCH ×2 (09:17→20:40)
[2019-06-16] MEDS: PRINZIDE 20/12.5MG PO SCH (09:17)
[2019-06-16] MEDS: LIPITOR PO SCH (09:17)
--- NOTE | 2019-06-16 10:19 | ORTHOPAEDICS PROGRESS NOTE ---
DATE: 06/16/2019 SUBJECTIVE: Ms. Miller is seen status post total knee replacement. She is slow to mobilize. She is limited by her oxygen dependence on COPD and emphysema, as well as her obesity. Fortunately, she is stable. Her vital signs are stable. Her bandage is clean and dry. We will plan on discontinuing the drain and Duarte and IV and mobilizing her today. She does require constant oxygen. She is moderately obese and has balance issues and requiring 1 to 2 person standby assist. There is absolutely no way she could go home at this point. It is my opinion that she will require inpatient rehab for 10 to 21 days just to restore mobility to be independent with ADLs at home. ASSESSMENT/DIAGNOSES: 1. Day 1 status post total knee. 2. Oxygen-dependent chronic obstructive pulmonary disease. 3. History of depression. 4. Hypertension. 5. Obesity with fall risk and difficult to mobilize. PLAN: We will plan on trying to get her approved for inpatient status and inpatient rehab. I certainly think she is a high fall risk and her oxygen dependence from the COPD as well as her obesity and poor mobilization put her at increased risk for postop complications at home. We will continue to mobilize her as tolerated and plan on rehab when a bed is available. cc: Fadi Thao MD
--- NOTE | 2019-06-16 13:08 | ORTHOPAEDICS PROGRESS NOTE ---
DATE: 06/16/2019 SUBJECTIVE DATA: Ms. Miller is seen postop total knee replacement day 1. She reports she has only been able to get up out of bed and walk to the door and back with assistance. She states she did get short of breath when she did that. She states she stays on oxygen all the time and has COPD. She reports that her nausea has somewhat improved today. She denies any nausea or vomiting today. She states sometimes she gets dizzy going from sitting to standing. She states her pain is 2/10 at this time and is under control. OBJECTIVE DATA: There is good sensation to the lower extremities. Her bandages are clean and dry. There is negative Homans sign. There is no redness or obvious signs of infection. There is good pedal pulses. ASSESSMENT: 1. Degenerative joint right knee with right total knee arthroplasty. 2. Obesity with high fall risk. 3. Chronic obstructive pulmonary disease with oxygen dependency. PLAN: We will plan on keeping Ms. Miller in the hospital due to her COPD and her inability to mobilize without much help. We will see if we can get therapy to work with her more tomorrow and see if her breathing is better. We will check back on her then. Dictated by DAVID Trejo for Fadi Thao MD cc: DAVID Trejo MD
--- NOTE | 2019-06-16 13:41 | Diag Imaging Result Doc PS360 ---
CHEST-PORTABLE - 06/16/2019 INDICATION: REHAB PLACEMENT COMPARISON: 03/14/2019 FINDINGS: The lungs are normally expanded and clear. Heart size and mediastinal contours are normal. No pneumothorax or pleural effusion. IMPRESSION: Negative exam. Electronically signed by Antonio He 06/16/2019 1:38 PM
[2019-06-16] MEDS: SEPTRA DS PO SCH (20:43)
[2019-06-17] MEDS: ULTRAM PO SCH ×4 (03:29→21:40)
[2019-06-17] MEDS: TYLENOL PO SCH ×4 (03:30→21:41)
[2019-06-17] MEDS: SYNTHROID PO SCH (06:22)
[2019-06-17 07:03] LABS: HEMATOCRIT 37.8 % (37.0-47.0); HEMOGLOBIN 11.9 g/dL (12.0-16.0)
[2019-06-17] MEDS: CELEBREX PO SCH ×2 (09:14→21:41)
[2019-06-17] MEDS: PEPCID PO SCH (09:14)
[2019-06-17] MEDS: SEPTRA DS PO SCH ×2 (09:14→21:41)
[2019-06-17] MEDS: ASPIRIN PO SCH (09:14)
[2019-06-17] MEDS: WELLBUTRIN XL PO SCH (09:15)
[2019-06-17] MEDS: ZYLOPRIM PO SCH (09:15)
[2019-06-17] MEDS: PRINZIDE 20/12.5MG PO SCH (09:15)
[2019-06-17] MEDS: LIPITOR PO SCH (09:15)
[2019-06-17] MEDS: COLACE PO SCH ×2 (09:15→21:40)
[2019-06-17] MEDS ORDERED: MIRALAX PO PRN (09:29)
--- NOTE | 2019-06-17 13:09 | ORTHOPAEDICS PROGRESS NOTE ---
DATE: 06/17/2019 SUBJECTIVE DATA: Ms. Medina is seen on postoperative day 2 of her right total knee arthroplasty. She reports she has been doing a lot better today. She reports she still needs assistance with ambulation. She states the shortness of breath is getting better. She does report that she still has to wear oxygen all the time. She denies nausea or vomiting. She reports her pain is still about 2/10 to 3/10 at this time. OBJECTIVE DATA: There is good sensation to her right lower extremity. The bandages are clean and dry at this time. There is no active bleeding. There is negative Homans sign. There is no redness or obvious signs of infection. There are good pedal pulses. There is good capillary refill in the toes. ASSESSMENT: 1. Degenerative joint disease of the right knee with right total knee arthroplasty. 2. Obesity with high fall risk. 3. Chronic obstructive pulmonary disease with oxygen dependency. PLAN: We plan to discharge Ms. Miller in the morning to inpatient rehab. We will check back on her then and get her discharged. Dictated by DAVID Trejo for Fadi Thao MD cc: DAVID Trejo MD
[2019-06-18] MEDS: ULTRAM PO SCH ×2 (02:50→08:41)
[2019-06-18] MEDS: TYLENOL PO SCH ×2 (02:50→08:41)
[2019-06-18] MEDS: SYNTHROID PO SCH (06:33)
[2019-06-18 06:36] LABS: HEMATOCRIT 38.5 % (37.0-47.0); HEMOGLOBIN 11.7 g/dL (12.0-16.0)
[2019-06-18 07:52] VITALS: BP 122/41
[2019-06-18] MEDS: PEPCID PO SCH (08:40)
[2019-06-18] MEDS: CELEBREX PO SCH (08:40)
[2019-06-18] MEDS: WELLBUTRIN XL PO SCH (08:40)
[2019-06-18] MEDS: LIPITOR PO SCH (08:41)
[2019-06-18] MEDS: PRINZIDE 20/12.5MG PO SCH (08:41)
[2019-06-18] MEDS: COLACE PO SCH (08:41)
[2019-06-18] MEDS: SEPTRA DS PO SCH (08:41)
[2019-06-18] MEDS: ASPIRIN PO SCH (08:41)
[2019-06-18] MEDS: ZYLOPRIM PO SCH (08:42)
--- NOTE | 2019-06-18 10:04 | DISCHARGE SUMMARY ---
ADMISSION DATE: 06/15/2019 DISCHARGE DATE: 06/18/2019 ADMITTING DIAGNOSIS: Degenerative joint disease, right knee. DISCHARGE DIAGNOSIS: Degenerative joint disease, right knee. PRINCIPLE PROCEDURE: Right total knee arthroplasty. PAST MEDICAL HISTORY: Includes COPD and emphysema, depression, hypertension, DJD of her joints. PAST SURGICAL HISTORY: Is cholecystectomy, gastric bypass, hip replacement, right total knee arthroplasty. ALLERGIES: She is allergic to cephalexin. DISCHARGE MEDICATIONS: 1. [place] 10 mg p.r.n. for pain. 2. Aspirin 325 mg daily for DVT prophylaxis. 3. MiraLAX 1 cap full for constipation. 4. Phenergan 25 mg q.6 p.r.n. nausea. 5. Dulcolax 1 tablet up to 3 times daily for constipation. HOSPITAL COURSE: The patient was taken to the operating room on 06/15/2019 where a right total knee arthroplasty was performed. She was transferred to recovery floor in satisfactory condition. She was then transferred to the surgical unit floor and did fine. On postop day 1, she developed some shortness of breath and was unable to walk without assistance x2. We kept her in the hospital and keep her on oxygen and she started to improve overnight. She started walking with physical therapy on postop day 3 and did much better. Her bandages stayed clean and dry throughout the hospital course. Physical Therapy worked with the patient and got her walking better. She was able to spontaneously void. She transitioned to oral pain medication. There has been no pain with calf squeeze. There is good sensation. There is good capillary refill in the toes. There are good pedal pulses. She was felt ready to be discharged home on 06/18/2019. DISPOSITION: And she is going to be discharged to an inpatient rehab unit. FOLLOWUP: She is to follow up with Dr. Thao in roughly 2 6 weeks whenever she gets done with rehab. They can remove her orion in roughly 10 days in rehab. DISCHARGE INSTRUCTIONS: She is to keep her incision site clean, dry, and covered at all times. Dictated by DAVID Trejo for Fadi Thao MD cc: DAVID Trejo MD
== END 2019-06-18 11:43 | DRG 470 ==
LOC: SURHOLD 06:30 → EDSTATUS 10:45 → 4N 12:15
PROVIDERS: ADMIT Orthopaedic Surgery Adult Reconstructive Orthopaedic Surgery; ATTEND Orthopaedic Surgery Adult Reconstructive Orthopaedic Surgery